=== PATIENT | female | born 1980 | race Caucasian/White ===

== ENCOUNTER 2016-10-21 03:54 | Observation (INO) | payer OTHER ==
[2016-10-21] MEDS ORDERED: Metoclopramide 10 MG/2 ML SDV IVPUSH ONE (04:56)
[2016-10-21] MEDS ORDERED: HYDROmorphone 1 MG/ML Syringe IVPUSH ONE ×2 (04:56→07:26)
[2016-10-21] MEDS ORDERED: Dextrose 5%-0.9% NaCl 1,000 ML IV SCH (05:00)
--- NOTE | 2016-10-21 05:06 | EDM.PDOC ---
ED HPI GENERAL MEDICAL PROBLEM - General Chief Complaint: Abdominal Pain Stated Complaint: abdominal right side pain Time Seen by Provider: 10/21/16 04:55 Source of Information: Reports: Patient, Family (spouse) History Limitations: Reports: No Limitations - History of Present Illness INITIAL COMMENTS - FREE TEXT/NARRATIVE: 36-year-old female presents to the ED for evaluation of severe right lower quadrant abdominal pain. Patient states pain came on evening October 19. Initially it seemed to have a colicky component but over the last 24 hours is been much more constant with intermittent colicky component. Associated nausea and vomiting due to the intensity of the pain. Complete loss of appetite and inability to eat for over 24 hours. Aware of some chills but no defined fever. Painful to walk cough or get in and out of a vehicle etc. Previous abdominal surgery is that of a total abdominal hysterectomy with retained ovaries. Previous cholecystectomy. Patient reports she was seen at [facility] yesterday and did have CT of the abdomen without any contrast and no signs of appendicitis were confirmed. They suggested that she had some inflammation of her bowel in this area and she was started on metronidazole and Cipro. She's not been able to keep down either of these medications. Onset: Gradual Onset Date: 10/19/16 Onset Time: 18:00 Duration: Hour(s):, Getting Worse Location: Reports: Abdomen (Right lower quadrant of the abdomen.) Quality: Reports: Ache, Stabbing (Intermittent stabbing sharp pain but otherwise deep aching pain.) Severity: Severe (Current pain is 9 on a 10) Improves with: Reports: None Worsens with: Reports: Movement Context: Denies: Activity, Exercise, Lifting, Sick Contact, Trauma, Other Associated Symptoms: Reports: Fever/Chills, Loss of Appetite, Malaise, Nausea/ Vomiting (Nausea and vomiting). 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 (see below) (Tried to take prescribed medications but was unable to keep them down.) Right Abdominal Pain Score (Numeric/FACES): 9 - Related Data Allergies Allergy/AdvReac Type Severity Reaction Status Date / Time amoxicillin [Amoxicillin] Allergy Hives Verified 10/21/16 10:11 hydrocodone Allergy Shortness Verified 10/21/16 10:11 of Breath shellfish derived Allergy Hives Verified 10/21/16 10:11 Home Meds: Home Meds Albuterol [IJD: Albuterol HFA] 1 - 2 puff INH Q4H PRN 10/21/16 [History] Albuterol [Proventil Neb Soln] 1 puff INH QID PRN 10/21/16 [History] Ciprofloxacin [IJP: Ciprofloxacin HCl] 500 mg PO BID 10/21/16 [History] Metronidazole [IJD: metroNIDAZOLE] 500 mg PO TID 10/21/16 [History] Mometasone/Formoterol [Dulera 200-5 MCG] 2 puff INH BID 10/21/16 [History] Multivitamin [Multivitamins] 1 tab PO DAILY 10/21/16 [History] Past Medical History Respiratory History: Reports: Asthma Gastrointestinal History: Reports: Inflammatory Bowel Disease - Past Surgical History GI Surgical History: Reports: Cholecystectomy Female Surgical History: Reports: Hysterectomy Social & Family History - Family History Family Medical History: Noncontributory - Tobacco Use Smoking Status *Q: Current Every Day Smoker Years of Tobacco use: 15 Packs/Tins Daily: 0.5 Used Tobacco, but Quit: No Month Tobacco Last Used: December 2013 Second Hand Smoke Exposure: No - Caffeine Use Caffeine Use: Reports: Coffee - Alcohol Use Days Per Week of Alcohol Use: 0 Number of Drinks Per Day: 0 Total Drinks Per Week: 0 - Recreational Drug Use Recreational Drug Use: No Drug Use in Last 12 Months: No - Living Situation & Occupation Living situation: Reports: Single Occupation: Employed [employer] - Review of Systems Review Of Systems: See Below Constitutional: Reports: Chills, Malaise, Weakness, Fatigue, Decreased Appetite. Denies: Fever, Weight Loss HEENT: Reports: No Symptoms Respiratory: Reports: Wheezing (Occasional brown sputum), Cough (Cigarette smoker.), Sputum Cardiovascular: Reports: Dyspnea on Exertion ( occasional wheezing sometimes ). Denies: Chest Pain, Blood Pressure Problem, Claudication, Edema, Lightheadedness, Orthopnea Endocrine: Reports: Fatigue GI/Abdominal: Reports: Abdominal Pain, Anorexia (See history of present illness) , Nausea, Vomiting. Denies: Diarrhea : Reports: No Symptoms Musculoskeletal: Reports: No Symptoms Skin: Reports: No Symptoms Neurological: Reports: No Symptoms Psychiatric: Reports: No Symptoms ED EXAM, GI/ABD - Physical Exam Exam: See Below Exam Limited By: No Limitations General Appearance: Alert, WD/WN, Moderate Distress (Patient does appear to be in significant amount of discomfort. She is afebrile on exam.) Eyes: Bilateral: Normal Appearance (No jaundice) Throat/Mouth: Normal Inspection, Normal Lips, Normal Oropharynx, Other Head: Atraumatic (Tongue is moist), Normocephalic Neck: Normal Inspection, Supple, Non-Tender, Full Range of Motion. No: Lymphadenopathy (L), Lymphadenopathy (R), Thyromegaly Respiratory/Chest: No Respiratory Distress, Lungs Clear, Normal Breath Sounds, No Accessory Muscle Use, Other (Initial O2 sats reported at 93%. They're currently 97% on room air.). No: Respiratory Distress Cardiovascular: Normal Peripheral Pulses, Regular Rate, Rhythm, No Edema, No Gallop, No Murmur, No Rub GI/Abdominal Exam: Guarding (Right lower quadrant of the abdomen), Rebound ( guarding right lower quadrant in the abdomenrebound tenderness over McBurney's point. ), Tender, Abnormal Bowel Sounds (Hypoactive bowel sounds are few and far between.) Back Exam: Normal Inspection, Full Range of Motion. No: CVA Tenderness (L), CVA Tenderness (R) Extremities: Normal Inspection, Normal Range of Motion, Non-Tender, No Pedal Edema, Normal Capillary Refill Neurological: Alert, Oriented, CN II-XII Intact, Normal Cognition, Normal Gait, Normal Reflexes, No Motor/Sensory Deficits Psychiatric: Normal Mood Skin Exam: Warm, Dry, Intact, Normal Color, No Rash Course - Vital Signs Last Recorded V/S: Last Vital Signs Temp 36.8 C 10/21/16 16:00 Pulse 98 10/21/16 15:01 Resp 16 10/21/16 11:35 BP 116/63 10/21/16 15:01 Pulse Ox 95 10/21/16 15:01 - Orders/Labs/Meds Orders: Active Orders 24 hr Category Date Time Status Patient Status [ADT] Stat ADT 10/21/16 10:26 Active Ambulate [RC] ASDIRECTED Care 10/21/16 10:28 Active Incentive Breathing [RT Incentive Spirometry] [RC] Care 10/21/16 10:33 Active ASDIRECTED Notify Provider [RC] ASDIRECTED Care 10/21/16 10:05 Active Oxygen Therapy [RC] .PRN Care 10/21/16 10:05 Active Pulse Oximetry [RC] ASDIRECTED Care 10/21/16 10:05 Active Turn, Cough, Deep Breathe [RC] .PRN Care 10/21/16 10:29 Active Verify Patient Consent Obtain [RC] ASDIRECTED Care 10/21/16 08:28 Active Vital Signs [RC] Q15M Care 10/21/16 10:05 Inactive Clear Liquid Diet [DIET] Diet 10/21/16 Dinner Active Abdomen 1V Flat [CR] Stat Exams 10/21/16 04:57 Taken Abdomen Pelvis wo Cont [CT] Stat Exams 10/21/16 06:14 Taken Albuterol [Proventil Neb Soln] Med 10/21/16 10:05 Active 2.5 mg NEB ONETIME PRN HYDROmorphone [Dilaudid] Med 10/21/16 10:31 Active 0.5 mg IVPUSH Q1H PRN Mometasone/Formoterol [Dulera 200-5 MCG] Med 10/21/16 21:00 Active 2 puff IH BID cefOXitin [Mefoxin in Dextrose,Iso-Osm 1 GM/50 ML] 1 gm Med 10/21/16 15:00 Active Premix Bag 1 bag IV Q6H diphenhydrAMINE [Benadryl] Med 10/21/16 10:05 Active 25 mg IVPUSH Q6H PRN metroNIDAZOLE/Normal Saline [Flagyl 500 MG in NS 100 ML Med 10/21/16 11:00 Active ] 500 mg Premix Bag 1 bag IV Q8H Schedule Procedure [COMM] Urgent Oth 10/21/16 08:29 Ordered Medication Orders Al Hydroxide/Mg Hydroxide (Mag-Al Plus) 30 ml PO Q4H PRN PRN Reason: Heartburn Last Admin: 10/21/16 18:48 Dose: 30 ml Albuterol (Proventil Neb Soln) 2.5 mg NEB ONETIME PRN PRN Reason: asthma Diphenhydramine HCl (Benadryl) 25 mg IVPUSH Q6H PRN PRN Reason: pruritis Hydromorphone HCl (Dilaudid) 0.5 mg IVPUSH Q1H PRN PRN Reason: Pain Last Admin: 10/21/16 16:19 Dose: 0.5 mg Admin: 10/21/16 12:07 Dose: 0.5 mg Cefoxitin Sodium 1 gm/ Premix 50 mls @ 100 mls/hr IV Q6H [facility] Last Admin: 10/21/16 15:13 Dose: 100 mls/hr Metronidazole 500 mg/ Premix 100 mls @ 100 mls/hr IV Q8H LARA Last Admin: 10/21/16 18:24 Dose: 100 mls/hr Infusion: 10/21/16 13:07 Dose: 100 mls/hr Admin: 10/21/16 12:07 Dose: 100 mls/hr Metoclopramide HCl (Reglan) 10 mg IVPUSH Q6H PRN PRN Reason: Nausea Mometasone Furoate/Formoterol Fumar (Dulera 200-5 Mcg) 2 puff IH BID LARA Tramadol HCl (Ultram) 50 mg PO Q6H PRN PRN Reason: Pain Last Admin: 10/21/16 18:24 Dose: 50 mg Labs: Laboratory Tests 10/21/16 10/21/16 10/21/16 Range/Units 04:50 04:50 06:50 WBC 20.84 H (3.98-10.04) K/mm3 RBC 5.18 (3.98-5.22) M/mm3 Hgb 15.7 (11.2-15.7) gm/L Hct 44.4 (34.1-44.9) % MCV 85.7 (79.4-94.8) fl MCH 30.3 (25.6-32.2) pg MCHC 35.4 (32.2-35.5) g/dl RDW Std Deviation 41.2 (36.4-46.3) fL Plt Count 230 (182-369) K/mm3 MPV 11.0 (9.4-12.3) fl Neutrophils % (Manual) 88 H (40-60) % Band Neutrophils % 0 (0-10) % Lymphocytes % (Manual) 6 L (20-40) % Atypical Lymphs % 1 % Monocytes % (Manual) 5 (2-10) % Eosinophils % (Manual) 0 L (0.7-5.8) % Basophils % (Manual) 0 L (0.1-1.2) Platelet Estimate Adequate Plt Morphology Comment Normal RBC Morph Comment Normal Sodium 138 (136-145) mEq/L Potassium 3.5 (3.5-5.1) mEq/L Chloride 103 (98-107) mEq/L Carbon Dioxide 24 (21-32) mEq/L Anion Gap 14.5 (5-15) BUN 9 (7-18) mg/dL Creatinine 0.9 (0.55-1.02) mg/dL Est Cr Clr Drug Dosing 72.17 mL/min Estimated GFR (MDRD) > 60 (>60) mL/min BUN/Creatinine Ratio 10.0 L (14-18) Glucose 125 H (74-106) mg/dL Calcium 9.0 (8.5-10.1) mg/dL Total Bilirubin 0.4 (0.2-1.0) mg/dL AST 16 (15-37) U/L ALT 29 (14-59) U/L Alkaline Phosphatase 58 (46-116) U/L C-Reactive Protein 1.2 H* (<1.0) mg/dL Total Protein 7.3 (6.4-8.2) g/dl Albumin 4.1 (3.4-5.0) g/dl Globulin 3.2 gm/dL Albumin/Globulin Ratio 1.3 (1-2) Urine Color Yellow (Yellow) Urine Appearance Slt cloudy H (Clear) Urine pH 6.0 (5.0-8.0) Ur Specific [place] 1.015 (1.005-1.030) Urine Protein Negative (Negative) Urine Glucose (UA) 2+ H (Negative) Urine Ketones 1+ H (Negative) Urine Occult Blood 2+ H (Negative) Urine Nitrite Negative (Negative) Urine Bilirubin Negative (Negative) Urine Urobilinogen 0.2 (0.2-1.0) Ur Leukocyte Esterase Negative (Negative) Urine RBC 0-5 (0-5) /hpf Urine WBC 0-5 (0-5) /hpf Ur Epithelial Cells 5-10 H (0-5) /hpf Urine Bacteria Few (FEW) /hpf Urine Mucus Few (FEW) /hpf Meds: Medications Generic Name Dose Route Start Last Admin Trade Name Freq PRN Reason Stop Dose Admin Al Hydroxide/Mg Hydroxide 30 ml 10/21/16 18:32 10/21/16 18:48 Mag-Al Plus PO 30 ml Q4H PRN Administration Heartburn Albuterol 2.5 mg 10/21/16 10:05 Proventil Neb Soln NEB ONETIME PRN asthma Diphenhydramine HCl 25 mg 10/21/16 10:05 Benadryl IVPUSH Q6H PRN pruritis Hydromorphone HCl 0.5 mg 10/21/16 10:31 10/21/16 16:19 Dilaudid IVPUSH 0.5 mg Q1H PRN Administration Pain Cefoxitin Sodium 1 gm/ Premix 50 mls @ 100 mls/hr 10/21/16 15:00 10/21/16 15: 13 IV 100 mls/hr Q6H LARA Administration Metronidazole 500 mg/ Premix 100 mls @ 100 mls/hr 10/21/16 11:00 10/21/16 18: 24 IV 100 mls/hr Q8H LARA Administration Metoclopramide HCl 10 mg 10/21/16 10:40 Reglan IVPUSH Q6H PRN Nausea Mometasone Furoate/Formoterol Fumar 2 puff 10/21/16 21:00 Dulera 200-5 Mcg IH BID LARA Tramadol HCl 50 mg 10/21/16 17:41 10/21/16 18:24 Ultram PO 50 mg Q6H PRN Administration Pain Discontinued Medications Generic Name Dose Route Start Last Admin Trade Name Freq PRN Reason Stop Dose Admin Albuterol Confirm 10/21/16 09:58 Proventil Hfa Administered 10/21/16 09:59 Dose 6.7 gm INH .STK-MED ONE Bupivacaine HCl Confirm 10/21/16 08:47 10/21/16 09:47 Marcaine 0.5% Administered 10/21/16 08:48 15 ml Dose Administration 30 ml .ROUTE .STK-MED ONE Dexamethasone Confirm 10/21/16 09:14 Dexamethasone Administered 10/21/16 09:15 Dose 20 mg .ROUTE .STK-MED ONE Diatrizoate Meglum/Diatrizoate Sod 90 ml 10/21/16 07:09 10/21/16 07:18 Gastrografin 37% PO 10/21/16 07:10 90 ml ONETIME ONE Administration Fentanyl Confirm 10/21/16 09:15 Sublimaze Administered 10/21/16 09:16 Dose 250 mcg .ROUTE .STK-MED ONE Fentanyl 50 mcg 10/21/16 10:05 Sublimaze IVPUSH 10/21/16 10:21 Q5M PRN Pain Glycopyrrolate Confirm 10/21/16 10:15 Robinul Administered 10/21/16 10:16 Dose 0.2 mg .ROUTE .STK-MED ONE Glycopyrrolate Confirm 10/21/16 10:15 Robinul Administered 10/21/16 10:16 Dose 0.2 mg .ROUTE .STK-MED ONE Glycopyrrolate Confirm 10/21/16 10:15 Robinul Administered 10/21/16 10:16 Dose 0.2 mg .ROUTE .STK-MED ONE Hydromorphone HCl 1 mg 10/21/16 04:56 10/21/16 05:22 Dilaudid IVPUSH 10/21/16 04:57 1 mg ONETIME ONE Administration Hydromorphone HCl 1 mg 10/21/16 07:26 10/21/16 07:32 Dilaudid IVPUSH 10/21/16 07:27 1 mg ONETIME ONE Administration Hydromorphone HCl 0.5 mg 10/21/16 10:05 Dilaudid IVPUSH 10/21/16 10:21 Q15M PRN severe pain Hydromorphone HCl Confirm 10/21/16 10:35 Dilaudid Administered 10/21/16 10:36 Dose 1 mg .ROUTE .STK-MED ONE Dextrose/Sodium Chloride 1,000 mls @ 999 mls/hr 10/21/16 05:00 10/21/16 05:31 Dextrose 5%-Normal Saline IV 999 mls/hr ASDIRECTED LARA Administration Potassium Chloride/Dextrose/Sod Cl Confirm 10/21/16 06:38 10/21/16 06:39 D5 Ns With 20 Meq Kcl Administered 10/21/16 06:39 1,000 ml Dose Administration 1,000 mls @ as directed .ROUTE .STK-MED ONE Potassium Chloride/Dextrose/Sod Cl 1,000 mls @ 150 mls/hr 10/21/16 06:45 06:45 D5 Ns With 20 Meq Kcl IV 150 mls/hr ASDIRECTED LARA Administration Cefoxitin Sodium 2 gm/ Premix 50 mls @ 100 mls/hr 10/21/16 07:34 10/21/16 08: 53 IV 10/21/16 08:03 100 mls/hr ONETIME ONE Administration Lidocaine HCl Confirm 10/21/16 09:14 Xylocaine-Mpf 1% Administered 10/21/16 09:15 Dose 4 mls @ as directed .ROUTE .STK-MED ONE Lactated Ringer's Confirm 10/21/16 09:14 Ringers, Lactated Administered 10/21/16 09:15 Dose 1,000 mls @ as directed .ROUTE .STK-MED ONE Phenylephrine HCl 1 mg/ Sodium 10.1 mls @ 1 mls/sec 10/21/16 10:15 Chloride IV TITRATE LARA Protocol Lactated Ringer's 1,000 mls @ 75 mls/hr 10/21/16 10:30 Ringers, Lactated IV ASDIRECTED LARA Metoclopramide HCl 7.5 mg 10/21/16 04:56 10/21/16 05:22 Reglan IVPUSH 10/21/16 04:57 7.5 mg ONETIME ONE Administration Midazolam HCl Confirm 10/21/16 09:15 Versed 1 Mg/Ml Administered 10/21/16 09:16 Dose 2 mg .ROUTE .STK-MED ONE Neostigmine Methylsulfate Confirm 10/21/16 10:15 Neostigmine Methylsulfate Administered 10/21/16 10:16 Dose 10 mg .ROUTE .STK-MED ONE Ondansetron HCl 4 mg 10/21/16 07:26 10/21/16 07:35 Zofran IVPUSH 10/21/16 07:27 4 mg ONETIME ONE Administration Ondansetron HCl Confirm 10/21/16 09:14 Zofran Administered 10/21/16 09:15 Dose 4 mg .ROUTE .STK-MED ONE Ondansetron HCl 4 mg 10/21/16 10:05 Zofran IVPUSH ONETIME PRN Nausea/Vomiting Ondansetron HCl 4 mg 10/21/16 10:31 Zofran IVPUSH Q8H PRN Nausea Phenylephrine HCl Confirm 10/21/16 10:06 Scot-Synephrine Administered 10/21/16 10:07 Dose 10 mg .ROUTE .STK-MED ONE Propofol Confirm 10/21/16 09:14 Diprivan 20 Ml Administered 10/21/16 09:15 Dose 200 mg .ROUTE .STK-MED ONE Rocuronium Sayner Confirm 10/21/16 09:14 Zemuron Administered 10/21/16 09:15 Dose 50 mg .ROUTE .STK-MED ONE Succinylcholine Chloride Confirm 10/21/16 09:14 Quelicin Administered 10/21/16 09:15 Dose 200 mg .ROUTE .STK-MED ONE - Radiology Interpretation Free Text/Narrative:: 36-year-old female presents to the ED with gradually increasing right lower quadrant abdominal pain over the last 36 hours. She did chills but no defined fever. Complete loss of appetite with intermittent nausea and vomiting due to the intensity of the pain. Pain initially seemed to be quite colicky but is now much more constant and well localized to the right lower quadrant of the abdomen. She's had previous total bowel hysterectomy with retention of her ovaries. Appendix is present. On examination she is definitely exhibiting peritoneal signs in the right lower quadrant with guarding and rebound tenderness at McBurney's point. Plan IV D5 normal saline at open. Given Dilaudid 1 mg IV and Reglan 10 mg IV for pain/nausea relief. She will have initial KUB done. Urinalysis is routine labs will be obtained. - Re-Assessments/Exams Free Text/Narrative Re-Assessment/Exam: 10/21/16 05:26: KUB shows some increased stool in the right lower quadrant in the cecum distribution. No signs of bowel obstruction or significant constipation are evident. 10/21/16 06:26 labs reveal an elevated white blood cell count at 20,000.84 with 88% neutrophils and no bands reported. Hemoglobin is 15.7 hematocrit is 44.4. Platelets are 230,000. Chemistry shows a sodium of 138 potassium was low-normal at 3.5 chloride 103 bicarbonate 24 anion gap is 14.5 glucose 125 CRP is 1.2. Renal function and liver function appear to be normal. Patient is currently drinking oral contrast in preparation for CT of the abdomen and pelvis. She will not receive intravenous contrast as she has a well-defined shellfish allergy. 10/21/16 07:26 Patient is complaining of increased lower abdominal pain once again and associated nausea. Repeated Dilaudid 1 mg IV with Zofran 4 mg IV. is just to treat return from the CT suite. On my assessment she has evidence of acute appendicitis with a phlebolith present. I will therefore contact Dr. Pérez production superintendent hydro surgeon to see her in consultation. We'll go ahead and give her cefoxitin 1 g intravenously at this time. She reports a remote allergy to amoxicillin which was a rash. Departure - Departure Time of Disposition: 09:00 Disposition: Admitted As Inpatient 67 Condition: Fair Clinical Impression: Appendicitis Qualifiers: Appendicitis type: acute appendicitis Acute appendicitis type: with localized peritonitis Qualified Code(s): K35.3 - Acute appendicitis with localized peritonitis - Discharge Information - My Orders Last 24 Hours: My Active Orders 10/21/16 04:57 Abdomen 1V Flat [CR] Stat 10/21/16 06:14 Abdomen Pelvis wo Cont [CT] Stat - Assessment/Plan Last 24 Hours: My Active Orders 10/21/16 04:57 Abdomen 1V Flat [CR] Stat 10/21/16 06:14 Abdomen Pelvis wo Cont [CT] Stat
[2016-10-21] MEDS ORDERED: Dextrose 5%-0.9% NaCl with KCl 1,000 ML ONE (06:38)
[2016-10-21] MEDS ORDERED: Dextrose 5%-0.9% NaCl with KCl 1,000 ML IV SCH (06:45)
[2016-10-21] MEDS ORDERED: Diatrizoate Meglumine/Diatrizoate Sodium 37% 120 ML Bottle PO ONE (07:09)
[2016-10-21] MEDS ORDERED: Ondansetron 4 MG/2 ML SDV IVPUSH ONE (07:26)
[2016-10-21] MEDS ORDERED: cefOXitin 2 GM in Premix Bag 1 BAG IV ONE (07:34)
[2016-10-21] MEDS ORDERED: Bupivacaine 0.5% 30 ML SDV ONE (08:47)
--- NOTE | 2016-10-21 08:47 | PCM.PREANE ---
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.), Dyspnea on Exertion Gastrointestinal: No Symptoms (GERD), Abdominal Pain, Constipation, Decreased Appetite, Nausea, Vomiting Neurological: No Symptoms (History of vertigo.), Tingling (Both legs when sitting for a long time.) Other: Reports: None, Sinus Problem (seasonal allergies.), Anxiety - Physical Assessment NPO Status Date: 10/21/16 NPO Status Time: 07:18 Pulse: 68 O2 Sat by Pulse Oximetry: 97 Respiratory Rate: 16 Blood Pressure: 126/77 Temperature: 36 C Vital Signs: Last Vital Signs Temp 36.0 C 10/21/16 04:25 Pulse 68 10/21/16 04:25 Resp 16 10/21/16 04:25 BP Pulse Ox 93 L 10/21/16 04:25 Height: 1.6 m Weight: 73.936 kg ASA Class: 2E Mental Status: Alert & Oriented x3 Airway Class: Mallampati = 2 Dentition: Reports: Normal Dentition, Braxton(s), Caries Thyro-Mental Finger Breadths: 3 Mouth Opening Finger Breadths: 3 Lungs: Clear to Auscultation, Normal Respiratory Effort Cardiovascular: Regular Rate, Regular Rhythm, No Murmurs - Lab Values: Laboratory Last Values WBC 20.84 K/mm3 (3.98-10.04) H 10/21/16 04:50 RBC 5.18 M/mm3 (3.98-5.22) 10/21/16 04:50 Hgb 15.7 gm/L (11.2-15.7) 10/21/16 04:50 Hct 44.4 % (34.1-44.9) 10/21/16 04:50 MCV 85.7 fl (79.4-94.8) 10/21/16 04:50 MCH 30.3 pg (25.6-32.2) 10/21/16 04:50 MCHC 35.4 g/dl (32.2-35.5) 10/21/16 04:50 RDW Std Deviation 41.2 fL (36.4-46.3) 10/21/16 04:50 Plt Count 230 K/mm3 (182-369) 10/21/16 04:50 MPV 11.0 fl (9.4-12.3) 10/21/16 04:50 Neutrophils % (Manual) 88 % (40-60) H 10/21/16 04:50 Band Neutrophils % 0 % (0-10) 10/21/16 04:50 Lymphocytes % (Manual) 6 % (20-40) L 10/21/16 04:50 Atypical Lymphs % 1 % 10/21/16 04:50 Monocytes % (Manual) 5 % (2-10) 10/21/16 04:50 Eosinophils % (Manual) 0 % (0.7-5.8) L 10/21/16 04:50 Basophils % (Manual) 0 (0.1-1.2) L 10/21/16 04:50 Platelet Estimate Adequate 10/21/16 04:50 Plt Morphology Comment Normal 10/21/16 04:50 RBC Morph Comment Normal 10/21/16 04:50 Sodium 138 mEq/L (136-145) 10/21/16 04:50 Potassium 3.5 mEq/L (3.5-5.1) 10/21/16 04:50 Chloride 103 mEq/L (98-107) 10/21/16 04:50 Carbon Dioxide 24 mEq/L (21-32) 10/21/16 04:50 Anion Gap 14.5 (5-15) 10/21/16 04:50 BUN 9 mg/dL (7-18) 10/21/16 04:50 Creatinine 0.9 mg/dL (0.55-1.02) 10/21/16 04:50 Est Cr Clr Drug Dosing 72.17 mL/min 10/21/16 04:50 Estimated GFR (MDRD) > 60 mL/min (>60) 10/21/16 04:50 BUN/Creatinine Ratio 10.0 (14-18) L 10/21/16 04:50 Glucose 125 mg/dL (74-106) H 10/21/16 04:50 Calcium 9.0 mg/dL (8.5-10.1) 10/21/16 04:50 Total Bilirubin 0.4 mg/dL (0.2-1.0) 10/21/16 04:50 AST 16 U/L (15-37) 10/21/16 04:50 ALT 29 U/L (14-59) 10/21/16 04:50 Alkaline Phosphatase 58 U/L (46-116) 10/21/16 04:50 C-Reactive Protein 1.2 mg/dL (<1.0) H* 10/21/16 04:50 Total Protein 7.3 g/dl (6.4-8.2) 10/21/16 04:50 Albumin 4.1 g/dl (3.4-5.0) 10/21/16 04:50 Globulin 3.2 gm/dL 10/21/16 04:50 Albumin/Globulin Ratio 1.3 (1-2) 10/21/16 04:50 Urine Color Yellow (Yellow) 10/21/16 06:50 Urine Appearance Slt cloudy (Clear) H 10/21/16 06:50 Urine pH 6.0 (5.0-8.0) 10/21/16 06:50 Ur Specific [place] 1.015 (1.005-1.030) 10/21/16 06:50 Urine Protein Negative (Negative) 10/21/16 06:50 Urine Glucose (UA) 2+ (Negative) H 10/21/16 06:50 Urine Ketones 1+ (Negative) H 10/21/16 06:50 Urine Occult Blood 2+ (Negative) H 10/21/16 06:50 Urine Nitrite Negative (Negative) 10/21/16 06:50 Urine Bilirubin Negative (Negative) 10/21/16 06:50 Urine Urobilinogen 0.2 (0.2-1.0) 10/21/16 06:50 Ur Leukocyte Esterase Negative (Negative) 10/21/16 06:50 Urine RBC 0-5 /hpf (0-5) 10/21/16 06:50 Urine WBC 0-5 /hpf (0-5) 10/21/16 06:50 Ur Epithelial Cells 5-10 /hpf (0-5) H 10/21/16 06:50 Urine Bacteria Few /hpf (FEW) 10/21/16 06:50 Urine Mucus Few /hpf (FEW) 10/21/16 06:50 Above labs reviewed and noted. - Allergies Allergies/Adverse Reactions: Allergies Allergy/AdvReac Type Severity Reaction Status Date / Time amoxicillin [Amoxicillin] Allergy Hives Verified 12/19/13 18:53 hydrocodone Allergy Shortness Verified 12/19/13 18:53 of Breath shellfish derived Allergy Hives Verified 10/21/16 04:20 - Anesthesia Plan Pre-Op Medication Ordered: None - Acknowledgements Anesthesia Type Planned: General Anesthesia Pt an Appropriate Candidate for the Planned Anesthesia: Yes Alternatives and Risks of Anesthesia Discussed w Pt/Guardian: Yes Pt/Guardian Understands and Agrees with Anesthesia Plan: Yes PreAnesthesia Questionnaire Respiratory History: Reports: Asthma Gastrointestinal History: Reports: Inflammatory Bowel Disease - Past Surgical History GI Surgical History: Reports: Cholecystectomy Female Surgical History: Reports: Hysterectomy - SUBSTANCE USE Smoking Status *Q: Current Every Day Smoker Tobacco Use Within Last Twelve Months: Cigarettes Second Hand Smoke Exposure: No Days Per Week of Alcohol Use: 0 Number of Drinks Per Day: 0 Total Drinks Per Week: 0 Recreational Drug Use History: No - HOME MEDS Home Medications: Home Meds Albuterol [IJD: Albuterol HFA] 1 - 2 puff INH Q4H PRN 10/21/16 [History] Albuterol [Proventil Neb Soln] 1 puff INH QID PRN 10/21/16 [History] Ciprofloxacin [IJP: Ciprofloxacin HCl] 500 mg PO BID 10/21/16 [History] Metronidazole [IJD: metroNIDAZOLE] 500 mg PO TID 10/21/16 [History] Mometasone/Formoterol [Dulera 200-5 MCG] 2 puff INH BID 10/21/16 [History] Multivitamin [Multivitamins] 1 tab PO DAILY 10/21/16 [History] - CURRENT (IN HOUSE) MEDS Current Meds: Current Medications Dextrose/Sodium Chloride (Dextrose 5%-Normal Saline) 1,000 mls @ 999 mls/hr IV ASDIRECTED [facility] Last Admin: 10/21/16 05:31 Dose: 999 mls/hr Potassium Chloride/Dextrose/Sod Cl (D5 Ns With 20 Meq Kcl) 1,000 mls @ 150 mls/ hr IV ASDIRECTED [facility] Last Admin: 10/21/16 06:45 Dose: 150 mls/hr Discontinued Medications Diatrizoate Meglum/Diatrizoate Sod (Gastrografin 37%) 90 ml PO ONETIME ONE Stop: 10/21/16 07:10 Last Admin: 10/21/16 07:18 Dose: 90 ml Hydromorphone HCl (Dilaudid) 1 mg IVPUSH ONETIME ONE Stop: 10/21/16 04:57 Last Admin: 10/21/16 05:22 Dose: 1 mg Hydromorphone HCl (Dilaudid) 1 mg IVPUSH ONETIME ONE Stop: 10/21/16 07:27 Last Admin: 10/21/16 07:32 Dose: 1 mg Potassium Chloride/Dextrose/Sod Cl (D5 Ns With 20 Meq Kcl) Confirm Administered Dose 1,000 mls @ as directed .ROUTE .STK-MED ONE Stop: 10/21/16 06:39 Last Admin: 10/21/16 06:39 Dose: 1,000 ml Cefoxitin Sodium 2 gm/ Premix 50 mls @ 100 mls/hr IV ONETIME ONE Stop: 10/21/16 08:03 Metoclopramide HCl (Reglan) 7.5 mg IVPUSH ONETIME ONE Stop: 10/21/16 04:57 Last Admin: 10/21/16 05:22 Dose: 7.5 mg Ondansetron HCl (Zofran) 4 mg IVPUSH ONETIME ONE Stop: 10/21/16 07:27 Last Admin: 10/21/16 07:35 Dose: 4 mg
[2016-10-21] MEDS ORDERED: Rocuronium 50 MG/5 ML Vial ONE (09:14)
[2016-10-21] MEDS ORDERED: Dexamethasone 4 MG/ML 5 ML MDV ONE (09:14)
[2016-10-21] MEDS ORDERED: Lidocaine 1% 4 ML ONE (09:14)
[2016-10-21] MEDS ORDERED: Propofol 200 MG/20 ML SDV ONE (09:14)
[2016-10-21] MEDS ORDERED: Succinylcholine 200 MG/10 ML MDV ONE (09:14)
[2016-10-21] MEDS ORDERED: Ondansetron 4 MG/2 ML SDV ONE (09:14)
[2016-10-21] MEDS ORDERED: Lactated Ringers 1,000 ML ONE (09:14)
[2016-10-21] MEDS ORDERED: fentaNYL 250 MCG/5 ML SDV ONE (09:15)
[2016-10-21] MEDS ORDERED: Midazolam 1 MG/ML 2 ML SDV ONE (09:15)
[2016-10-21] MEDS ORDERED: Albuterol 6.7 GM Inhaler INH ONE (09:58)
[2016-10-21] MEDS ORDERED: HYDROmorphone 0.5 MG/0.5 ML Syringe IVPUSH PRN (10:05)
[2016-10-21] MEDS ORDERED: Ondansetron 4 MG/2 ML SDV IVPUSH PRN ×2 (10:05→10:31)
[2016-10-21] MEDS ORDERED: Albuterol 0.083% 2.5 MG/3 ML Neb Soln NEB PRN (10:05)
[2016-10-21] MEDS ORDERED: fentaNYL 100 MCG/2 ML SDV IVPUSH PRN (10:05)
[2016-10-21] MEDS ORDERED: diphenhydrAMINE 50 MG/ML SDV IVPUSH PRN (10:05)
[2016-10-21] MEDS ORDERED: Phenylephrine 1% 10 MG/ML SDV ONE (10:06)
--- NOTE | 2016-10-21 10:08 | HP ---
DATE OF ADMISSION: 10/21/2016 HISTORY OF PRESENT ILLNESS: The patient is a 36-year-old, who developed pain in the right lower quadrant. This occurred on , came into the walk-in clinic and a CT scan was done, which showed some bowel thickening. The patient was discharged, but the pain persisted and about 11 o'clock she began to vomit and came in about 3 o'clock in the morning today where CT scan was repeated showing acute appendicitis, 2 fecaliths. I was asked to see the patient. PAST MEDICAL HISTORY: Good health. ALLERGIES: Amoxicillin. SOCIAL HISTORY: She does smoke. No alcohol. REVIEW OF SYSTEMS: No chest pain, shortness of breath, cough, hoarseness, wheezing, fainting, weakness, numbness, or convulsions. FAMILY HISTORY: Negative. CURRENT MEDICATIONS: None. PHYSICAL EXAMINATION: GENERAL: Alert, cooperative female. VITAL SIGNS: Stable. EYES: Sclerae white. Extraocular muscle motion normal. ORAL CAVITY: Healthy mucous membrane with mouth and tongue. NECK: Supple. No nodes. No thyromegaly. Trachea midline. LUNGS: Clear. No rales, rhonchi, fremitus, or dullness. CARDIAC: Heart tones are regular rate. No S3, S4, jugular venous distention or murmurs. ABDOMEN: Positive Rovsing sign and tenderness and guarding in the right lower quadrant. MUSCULOSKELETAL: Moves all 4. SKIN: Warm and dry. PSYCHIATRIC: Alert and cooperative. NEUROLOGIC: 3 through 12 intact. No sensorineural deficit. ASSESSMENT: Acute appendicitis. PLAN: For laparoscopic appendectomy. Discussed the procedure, risks, complications. She understands and consents. MMODAL /[id number]
[2016-10-21] MEDS ORDERED: Glycopyrrolate 0.2 MG/ML SDV ONE ×3 (10:15)
[2016-10-21] MEDS ORDERED: Neostigmine Methylsulfate 10 MG/10 ML MDV ONE (10:15)
[2016-10-21] MEDS ORDERED: Phenylephrine 1 MG in Sodium Chloride 0.9% 10 ML IV SCH (10:15)
--- NOTE | 2016-10-21 10:26 | PCM.OPNOTE ---
- General Post-Op/Procedure Note Date of Surgery/Procedure: 10/21/16 Operative Procedure(s): lap appy Findings: necrotic appendix Pre Op Diagnosis: acute appendicitis Post-Op Diagnosis: necrotic appendix Anesthesia Technique: General ET Tube Primary Surgeon: Manoj Pérez EBL in mLs: 10 Complications: None Condition: Good
[2016-10-21] MEDS ORDERED: Lactated Ringers 1,000 ML IV SCH (10:30)
[2016-10-21] MEDS ORDERED: HYDROmorphone 1 MG/ML Syringe ONE (10:35)
[2016-10-21] MEDS ORDERED: Metoclopramide 10 MG/2 ML SDV IVPUSH PRN (10:40)
--- NOTE | 2016-10-21 10:47 | PCM.POSTAN ---
POST ANESTHESIA ASSESSMENT - MENTAL STATUS Mental Status: Alert - VITAL SIGNS Pulse Rate: 117 SaO2: 95 Resp Rate: 22 Blood Pressure: 127/75 Temperature: 37.0 C - RESPIRATORY Respiratory Status: Respiratory Rate WNL, Airway Patent, O2 Saturation Stable, Supplemental Oxygen - CARDIOVASCULAR CV Status: Pulse Rate WNL, Blood Pressure Stable - GASTROINTESTINAL GI Status: No Symptoms - POST OP HYDRATION Hydration Status: Adequate & Stable
--- NOTE | 2016-10-21 11:09 | PCM48HPAN ---
Post Anesthesia Note - EVALUATION WITHIN 48HRS OF ANESTHETIC Vital Signs in Normal Range: Yes Patient Participated in Evaluation: Yes Respiratory Function Stable: Yes Airway Patent: Yes Cardiovascular Function Stable: Yes Hydration Status Stable: Yes Pain Control Satisfactory: Yes Nausea and Vomiting Control Satisfactory: Yes Mental Status Recovered: Yes
[2016-10-21] MEDS: HYDROmorphone 0.5 MG/0.5 ML Syringe IVPUSH PRN ×4 (12:07→21:41)
[2016-10-21] MEDS: metroNIDAZOLE/Normal Saline 500 MG in Premix Bag 1 BAG IV SCH ×2 (12:07→18:24)
[2016-10-21] MEDS: cefOXitin 1 GM in Premix Bag 1 BAG IV SCH ×2 (15:13→21:41)
--- NOTE | 2016-10-21 16:42 | OR ---
DATE OF OPERATION: 10/21/2016 SURGEON: Manoj Pérez MD PREOPERATIVE DIAGNOSIS: Acute appendicitis. POSTOPERATIVE DIAGNOSIS: Acute appendicitis. OPERATION PERFORMED: Laparoscopic appendectomy done under general anesthetic. ESTIMATED BLOOD LOSS: 10 mL. FINDINGS: The appendix was swollen and one area of necrosis next noted. necrotic appendix. There is fluid in the pelvis and some reaction around the peritoneum. ANESTHESIA: Procedure was done under general anesthetic. DESCRIPTION OF PROCEDURE: The patient was taken to the operating room, placed in a supine position, connected to monitoring equipment, given a general anesthetic and intubated. Antibiotics had been given in the emergency room. SCDs were placed. The abdomen was then prepped with DuraPrep, draped off in a sterile fashion. Incision was made just below the umbilicus, carried down by sharp dissection to the fascia, which was incised, and the abdominal cavity was entered. Davis trocar placed, secured with stay sutures. Pneumoperitoneum established. A 5 mm 30-degree camera was inserted demonstrating acute appendicitis in the right lower quadrant. The patient placed in Trendelenburg with leftward tilt and the appendix was mobilized and a window placed and the appendix identified. A 5-mm trocar was placed in right upper quadrant and one in the right lower quadrant and the appendix was mobilized, incised in its peritoneal attachments and placed in a window at the base of the cecum. The Ethicon Endo-ligator was inserted through this window and the appendix was from its attachments to the cecum. Another firing of Endo-ligator the mesoappendix from the appendix. Some bleeding was noted, this stopped spontaneously. Appendix was placed in an Endobag and removed off the abdominal cavity. A pneumoperitoneum and Davis port was reinserted and the area was irrigated with suction exhauster showing excellent hemostasis. The pelvis was sucked out. The fluid was removed. This completed the intraabdominal portion of the procedure. Pneumoperitoneum and ports were removed and the fascia in the subumbilical port was closed in a transverse fashion with running 0 Vicryl suture. The skin was closed with a running subdermal 4-0 Dexon suture and the subumbilical port with interrupted 4-0 Dexon suture and the right upper quadrant and right lower quadrant ports, and 0.5% Marcaine infiltrated in the incision. The appendix was then inspected and not judged to have an area of necrosis making a high risk for intraabdominal infection and a candidate for antibiotics in-house. MMODAL /[id number]
[2016-10-21] MEDS: traMADol 50 MG Tab PO PRN (18:24)
[2016-10-21] MEDS ORDERED: Aluminum Hydroxide/Magnesium Hydroxide/Simethicone Susp 30 ML Cup PO PRN (18:32)
[2016-10-22] MEDS: cefOXitin 1 GM in Premix Bag 1 BAG IV SCH ×2 (02:47→08:56)
[2016-10-22] MEDS: metroNIDAZOLE/Normal Saline 500 MG in Premix Bag 1 BAG IV SCH ×2 (03:26→12:28)
[2016-10-22] MEDS: HYDROmorphone 0.5 MG/0.5 ML Syringe IVPUSH PRN ×2 (07:19→12:39)
[2016-10-22] MEDS: Formoterol/Mometasone 200-5 MCG 8.8 GM Inhaler IH SCH ×2 (08:06→08:42)
[2016-10-22] MEDS: traMADol 50 MG Tab PO PRN (08:53)
[2016-10-22 12:32] VITALS: BP 125/61
--- NOTE | 2016-10-22 13:11 | PCM.SURGPN ---
- General Info Date of Service: 10/22/16 POD#: 1 - Patient Data Vitals - Most Recent: Last Vital Signs Temp 98.1 F 10/22/16 12:26 Pulse 64 10/22/16 12:26 Resp 18 10/22/16 12:26 BP 125/61 10/22/16 12:26 Pulse Ox 97 10/22/16 12:26 Weight - Most Recent: 77.973 kg I&O - Last 24 Hours: Intake & Output 10/21/16 10/22/16 10/22/16 23:59 07:59 15:59 Intake Total 1790 800 650 Output Total 400 Balance 1390 800 650 Med Orders - Current: Current Medications Al Hydroxide/Mg Hydroxide (Mag-Al Plus) 30 ml PO Q4H PRN PRN Reason: Heartburn Last Admin: 10/21/16 18:48 Dose: 30 ml Albuterol (Proventil Neb Soln) 2.5 mg NEB ONETIME PRN PRN Reason: asthma Diphenhydramine HCl (Benadryl) 25 mg IVPUSH Q6H PRN PRN Reason: pruritis Hydromorphone HCl (Dilaudid) 0.5 mg IVPUSH Q1H PRN PRN Reason: Pain Last Admin: 10/22/16 12:39 Dose: 0.5 mg Cefoxitin Sodium 1 gm/ Premix 50 mls @ 100 mls/hr IV Q6H [facility] Last Admin: 10/22/16 08:56 Dose: 100 mls/hr Metronidazole 500 mg/ Premix 100 mls @ 100 mls/hr IV Q8H [facility] Last Admin: 10/22/16 12:28 Dose: 100 mls/hr Metoclopramide HCl (Reglan) 10 mg IVPUSH Q6H PRN PRN Reason: Nausea Mometasone Furoate/Formoterol Fumar (Dulera 200-5 Mcg) 2 puff IH BID [facility] Last Admin: 10/22/16 08:42 Dose: 2 puff Tramadol HCl (Ultram) 50 mg PO Q6H PRN PRN Reason: Pain Last Admin: 10/22/16 08:53 Dose: 50 mg Discontinued Medications Albuterol (Proventil Hfa) Confirm Administered Dose 6.7 gm INH .STK-MED ONE Stop: 10/21/16 09:59 Bupivacaine HCl (Marcaine 0.5%) Confirm Administered Dose 30 ml .ROUTE .STK-MED ONE Stop: 10/21/16 08:48 Last Admin: 10/21/16 09:47 Dose: 15 ml Dexamethasone (Dexamethasone) Confirm Administered Dose 20 mg .ROUTE .STK-MED ONE Stop: 10/21/16 09:15 Diatrizoate Meglum/Diatrizoate Sod (Gastrografin 37%) 90 ml PO ONETIME ONE Stop: 10/21/16 07:10 Last Admin: 10/21/16 07:18 Dose: 90 ml Fentanyl (Sublimaze) Confirm Administered Dose 250 mcg .ROUTE .STK-MED ONE Stop: 10/21/16 09:16 Fentanyl (Sublimaze) 50 mcg IVPUSH Q5M PRN PRN Reason: Pain Stop: 10/21/16 10:21 Glycopyrrolate (Robinul) Confirm Administered Dose 0.2 mg .ROUTE .STK-MED ONE Stop: 10/21/16 10:16 Glycopyrrolate (Robinul) Confirm Administered Dose 0.2 mg .ROUTE .STK-MED ONE Stop: 10/21/16 10:16 Glycopyrrolate (Robinul) Confirm Administered Dose 0.2 mg .ROUTE .STK-MED ONE Stop: 10/21/16 10:16 Hydromorphone HCl (Dilaudid) 1 mg IVPUSH ONETIME ONE Stop: 10/21/16 04:57 Last Admin: 10/21/16 05:22 Dose: 1 mg Hydromorphone HCl (Dilaudid) 1 mg IVPUSH ONETIME ONE Stop: 10/21/16 07:27 Last Admin: 10/21/16 07:32 Dose: 1 mg Hydromorphone HCl (Dilaudid) 0.5 mg IVPUSH Q15M PRN PRN Reason: severe pain Stop: 10/21/16 10:21 Hydromorphone HCl (Dilaudid) Confirm Administered Dose 1 mg .ROUTE .STK-MED ONE Stop: 10/21/16 10:36 Dextrose/Sodium Chloride (Dextrose 5%-Normal Saline) 1,000 mls @ 999 mls/hr IV ASDIRECTED [facility] Last Admin: 10/21/16 05:31 Dose: 999 mls/hr Potassium Chloride/Dextrose/Sod Cl (D5 Ns With 20 Meq Kcl) Confirm Administered Dose 1,000 mls @ as directed [facility] Stop: 10/21/16 06:39 Last Admin: 10/21/16 06:39 Dose: 1,000 ml Potassium Chloride/Dextrose/Sod Cl (D5 Ns With 20 Meq Kcl) 1,000 mls @ 150 mls/ hr IV ASDIRECTED [facility] Last Admin: 10/21/16 06:45 Dose: 150 mls/hr Cefoxitin Sodium 2 gm/ Premix 50 mls @ 100 mls/hr IV ONETIME ONE Stop: 10/21/16 08:03 Last Admin: 10/21/16 08:53 Dose: 100 mls/hr Lidocaine HCl (Xylocaine-Mpf 1%) Confirm Administered Dose 4 mls @ as directed .[facility] ONE Stop: 10/21/16 09:15 Lactated Ringer's (Ringers, Lactated) Confirm Administered Dose 1,000 mls @ as directed .[facility] ONE Stop: 10/21/16 09:15 Phenylephrine HCl 1 mg/ Sodium (Chloride) 10.1 mls @ 1 mls/sec IV TITRATE [facility] PRN Reason: Protocol Lactated Ringer's (Ringers, Lactated) 1,000 mls @ 75 mls/hr IV ASDIRECTED [facility] Metoclopramide HCl (Reglan) 7.5 mg IVPUSH ONETIME ONE Stop: 10/21/16 04:57 Last Admin: 10/21/16 05:22 Dose: 7.5 mg Midazolam HCl (Versed 1 Mg/Ml) Confirm Administered Dose 2 mg .[facility] ONE Stop: 10/21/16 09:16 Neostigmine Methylsulfate (Neostigmine Methylsulfate) Confirm Administered Dose 10 mg .[facility] ONE Stop: 10/21/16 10:16 Ondansetron HCl (Zofran) 4 mg IVPUSH ONETIME ONE Stop: 10/21/16 07:27 Last Admin: 10/21/16 07:35 Dose: 4 mg Ondansetron HCl (Zofran) Confirm Administered Dose 4 mg .[facility] ONE Stop: 10/21/16 09:15 Ondansetron HCl (Zofran) 4 mg IVPUSH ONETIME PRN PRN Reason: Nausea/Vomiting Ondansetron HCl (Zofran) 4 mg IVPUSH Q8H PRN PRN Reason: Nausea Phenylephrine HCl (Scot-Synephrine) Confirm Administered Dose 10 mg .ROUTE .STK- MED ONE Stop: 10/21/16 10:07 Propofol (Diprivan 20 Ml) Confirm Administered Dose 200 mg .ROUTE .STK-MED ONE Stop: 10/21/16 09:15 Rocuronium [place] (Zemuron) Confirm Administered Dose 50 mg .ROUTE .STK-MED ONE Stop: 10/21/16 09:15 Succinylcholine Chloride (Quelicin) Confirm Administered Dose 200 mg .ROUTE .STK -MED ONE Stop: 10/21/16 09:15 - Problem List Review Problem List Initiated/Reviewed/Updated: Yes - My Orders Last 24 Hours: Active Orders 24 hr Category Date Time Status Antiembolic Devices [RC] BID Care 10/21/16 17:48 Active Regular Diet [DIET] Diet 10/22/16 Lunch Active Alum Hydrox/Mag Hydrox/Simeth [Mag-Al Plus] Med 10/21/16 18:32 Active 30 ml PO Q4H PRN traMADol [Ultram] Med 10/21/16 17:41 Active 50 mg PO Q6H PRN SCD [Sequential Compression Device] [OM.PC] Routine Oth 10/21/16 17:48 Ordered Resuscitation Status Routine Resus Stat 10/21/16 14:11 Ordered Medication Orders Al Hydroxide/Mg Hydroxide (Mag-Al Plus) 30 ml PO Q4H PRN PRN Reason: Heartburn Last Admin: 10/21/16 18:48 Dose: 30 ml Albuterol (Proventil Neb Soln) 2.5 mg NEB ONETIME PRN PRN Reason: asthma Diphenhydramine HCl (Benadryl) 25 mg IVPUSH Q6H PRN PRN Reason: pruritis Hydromorphone HCl (Dilaudid) 0.5 mg IVPUSH Q1H PRN PRN Reason: Pain Last Admin: 10/22/16 12:39 Dose: 0.5 mg Admin: 10/22/16 07:19 Dose: 0.5 mg Admin: 10/21/16 21:41 Dose: 0.5 mg Admin: 10/21/16 19:49 Dose: 0.5 mg Admin: 10/21/16 16:19 Dose: 0.5 mg Admin: 10/21/16 12:07 Dose: 0.5 mg Cefoxitin Sodium 1 gm/ Premix 50 mls @ 100 mls/hr IV Q6H [facility] Last Admin: 10/22/16 08:56 Dose: 100 mls/hr Infusion: 10/22/16 03:17 Dose: 100 mls/hr Admin: 10/22/16 02:47 Dose: 100 mls/hr Infusion: 10/21/16 22:11 Dose: 100 mls/hr Admin: 10/21/16 21:41 Dose: 100 mls/hr Infusion: 10/21/16 15:43 Dose: 100 mls/hr Admin: 10/21/16 15:13 Dose: 100 mls/hr Metronidazole 500 mg/ Premix 100 mls @ 100 mls/hr IV Q8H [facility] Last Admin: 10/22/16 12:28 Dose: 100 mls/hr Infusion: 10/22/16 04:26 Dose: 100 mls/hr Admin: 10/22/16 03:26 Dose: 100 mls/hr Infusion: 10/21/16 19:24 Dose: 100 mls/hr Admin: 10/21/16 18:24 Dose: 100 mls/hr Infusion: 10/21/16 13:07 Dose: 100 mls/hr Admin: 10/21/16 12:07 Dose: 100 mls/hr Metoclopramide HCl (Reglan) 10 mg IVPUSH Q6H PRN PRN Reason: Nausea Mometasone Furoate/Formoterol Fumar (Dulera 200-5 Mcg) 2 puff IH BID [facility] Last Admin: 10/22/16 08:42 Dose: 2 puff Admin: 10/22/16 08:06 Dose: Tramadol HCl (Ultram) 50 mg PO Q6H PRN PRN Reason: Pain Last Admin: 10/22/16 08:53 Dose: 50 mg Admin: 10/21/16 18:24 Dose: 50 mg - Plan Plan (Free Text/Narrative):: discharge dictated JMLeigha
--- NOTE | 2016-10-23 07:24 | CR ---
Abdomen: Supine view of the abdomen was obtained. Comparison: No previous study. Bowel gas pattern appears normal. Bony structures appear normal. No abnormal calcifications or soft tissue abnormality is appreciated. Impression: 1. No abnormality is seen on supine abdominal x-ray. Diagnostic code #1
--- NOTE | 2016-10-23 08:27 | CT ---
CT abdomen and pelvis Technique: Multiple axial sections were obtained from above the dome of the diaphragm inferiorly through the pubic symphysis. No IV contrast was given. Oral contrast was utilized. Findings: Appendicolith is identified at the base of the appendix measuring about 7 mm in size. Additional smaller appendicolith noted within the more distal appendix. Appendix is dilated with slight inflammatory change compatible with appendicitis. There is a moderate amount of free fluid within the pelvis which can represent reactive fluid or pus from the appendicitis. Visualized lung bases show nothing acute. Noncontrast appearance of the liver and spleen appears within normal limits. Adrenal glands show no nodule. Pancreas is within normal limits. Kidneys show no abnormal calcifications or soft tissue abnormality. Aorta shows no aneurysmal dilatation. No retroperitoneal adenopathy or mesenteric abnormalities are seen. No pelvic mass or adenopathy is seen. Bone window settings were reviewed which appear within normal limits for the patient's age. Impression: 1. Enlarged appendix with appendicoliths. Findings compatible with appendicitis. 2. Fluid within the pelvis either reactive or due to pus. 3. No additional abnormality identified on noncontrast CT study of the abdomen and pelvis. Diagnostic code #5 Agree with preliminary report issued by [employer] ([employer] preliminary report dictated on 10/21/16, 8:27 AM Central Time)
--- NOTE | 2016-10-23 09:31 | DISCH ---
sADMISSION DATE: 10/21/2016 DISCHARGE DATE: 10/22/2016 HISTORY: A 36-year-old female who came into the emergency room with right lower quadrant abdominal pain and CT scan that was confirming appendicitis with 2 fecaliths. This was on Sunday. The patient, at that time, had been seen in the walk-in clinic, where a CT scan was performed for this pain, and they felt it was secondary to Crohn disease. She was given an appointment at that time and antibiotics, appointment for GI in [place]. The patient's comorbidities were that of asthma, she was on albuterol and had amoxicillin and hydrocodone allergies. PHYSICAL EXAMINATION: HEART AND LUNGS: Normal, but there was tenderness in the right lower quadrant with a positive McBurney's sign. HOSPITAL COURSE: The patient was seen in the emergency room and brought to the operating room, where a laparoscopic appendectomy was performed. There was a real concern for necrosis to the portion of the appendix, and she was placed overnight with IV antibiotics of cefoxitin and metronidazole. The patient improved, was eating. Abdomen was softer and her well being was excellent. She had reached maximum hospital benefit and was discharged with oral antibiotics of metronidazole and Cipro, pain medication of Flagyl. We will resume her albuterol, multivitamins, and Dulera 200/5. She was started on a regular diet. No work, pushing, shoving, or pulling and instructed on wound care. Her condition on discharge was improved and asked not to work. FINAL DIAGNOSES: 1. Acute appendicitis with area of necrosis, status post appendectomy. 2. Her history of allergies. The patient will be followed up in a week. DIET: See above. ACTIVITY: See above. FOLLOW-UP: See above. CONDITION ON DISCHARGE: Improved. MMGRACIE /[id number]
== END 2016-10-22 14:30 | disposition home or self-care (01) ==
LOC: JD.ED 03:54 → JD.SDS 08:26 → JD.MS 10:36
PROVIDERS: ADMIT Surgery; ATTEND Surgery
DX: K35.3 Acute appendicitis with localized peritonitis (principal); J45.909 Unspecified asthma, uncomplicated; F17.210 Nicotine dependence, cigarettes, uncomplicated; Z88.0 Allergy status to penicillin; Z88.5 Allergy status to narcotic agent; Z91.013 Allergy to seafood; Z79.51 Long term (current) use of inhaled steroids; Z79.899 Other long term (current) drug therapy; Z90.49 Acquired absence of other specified parts of digestive tract; Z90.710 Acquired absence of both cervix and uterus
CPT/HCPCS: 36415; 44970; 74000; 74176; 80053; 81001; 85025; 86140; 94664; 96361; 96365; 96375; 96376; 99285; A9270; G0378; J0330; J0694; J1100; J1170; J2250; J2370; J2405; J2710; J2765; J3010; J3480; J3490; J7042; J7120; Q9963; 00840; J2704

== ENCOUNTER 2021-06-22 10:42 | Day surgery (SDC) | payer OTHER ==
[~2021-06-22 10:42] MED LIST: Acetaminophen 325 MG Tab PO SCH; Gabapentin 300 MG Cap PO SCH; Lactated Ringers 1,000 ML IV SCH; Lidocaine 1%/Sod Bicarbonate in NS 8.4% 1 ML Syringe IDERM PRN; Sodium Chloride 0.9% 10 ML Syringe FLUSH PRN; Sodium Chloride 0.9% 10 ML Syringe FLUSH SCH
[2021-06-22] MEDS ORDERED: Albuterol 0.083% 2.5 MG/3 ML Neb Soln NEB SCH (11:16)
[2021-06-22] MEDS ORDERED: Lidocaine 1% with EPINEPHrine 1:100,000 10 ML MDV ONE ×2 (11:34→14:21)
[2021-06-22] MEDS ORDERED: Bupivacaine 0.5%/EPINEPHrine 1:200,000 50 ML MDV ONE ×2 (11:35→14:21)
[2021-06-22] MEDS ORDERED: Midazolam 1 MG/ML 2 ML SDV ONE (12:56)
[2021-06-22] MEDS ORDERED: Propofol 200 MG/20 ML SDV ONE (12:56)
[2021-06-22] MEDS ORDERED: fentaNYL 250 MCG/5 ML SDV ONE (12:56)
[2021-06-22] MEDS ORDERED: Lidocaine 1% 4 ML ONE (12:57)
[2021-06-22] MEDS ORDERED: Rocuronium 50 MG/5 ML Vial ONE (13:00)
[2021-06-22] MEDS ORDERED: Dexamethasone 4 MG/ML 5 ML MDV ONE (13:01)
[2021-06-22] MEDS ORDERED: Ondansetron 4 MG/2 ML SDV ONE (13:01)
[2021-06-22] MEDS ORDERED: ceFAZolin 1 GM Vial ONE (14:08)
[2021-06-22] MEDS ORDERED: Clindamycin Phosphate in D5W 900 MG in Premix Bag 1 BAG IV ONE ×2 (14:15)
[2021-06-22] MEDS ORDERED: Lactated Ringers 1,000 ML ONE (14:31)
[2021-06-22] MEDS ORDERED: Ketorolac 30 MG/ML SDV ONE (14:31)
[2021-06-22] MEDS ORDERED: Lidocaine 1%/Sod Bicarbonate in NS 8.4% 1 ML Syringe IDERM PRN (15:23)
[2021-06-22] MEDS ORDERED: Sodium Chloride 0.9% 10 ML Syringe FLUSH PRN (15:23)
[2021-06-22] MEDS ORDERED: HYDROmorphone 0.5 MG/0.5 ML Syringe IVPUSH PRN (15:26)
[2021-06-22] MEDS ORDERED: fentaNYL 100 MCG/2 ML SDV IVPUSH PRN (15:26)
[2021-06-22] MEDS ORDERED: Ondansetron 4 MG/2 ML SDV IVPUSH PRN (15:26)
[2021-06-22] MEDS ORDERED: Lactated Ringers 1,000 ML IV SCH (15:30)
[2021-06-22] MEDS ORDERED: traMADol 50 MG Tab PO ONE (16:18)
[2021-06-22 19:23] VITALS: BP 124/72; PULSE 97
[2021-06-22] MEDS ORDERED: Sodium Chloride 0.9% 10 ML Syringe FLUSH SCH (21:00)
== END 2021-06-22 17:05 | disposition home or self-care (01) ==
LOC: JD.SDS 10:42
PROVIDERS: ATTEND Surgery
DX: K43.2 Incisional hernia without obstruction or gangrene (principal); K42.9 Umbilical hernia without obstruction or gangrene; J45.909 Unspecified asthma, uncomplicated; G47.33 Obstructive sleep apnea (adult) (pediatric); F17.210 Nicotine dependence, cigarettes, uncomplicated; Z88.5 Allergy status to narcotic agent; Z88.0 Allergy status to penicillin; Z91.013 Allergy to seafood; Z88.6 Allergy status to analgesic agent; Z90.49 Acquired absence of other specified parts of digestive tract; Z90.711 Acquired absence of uterus with remaining cervical stump; Z79.51 Long term (current) use of inhaled steroids; Z79.899 Other long term (current) drug therapy
CPT/HCPCS: 49654; A9270; J0690; J1100; J1885; J2250; J2405; J2704; J2710; J3010; J3490; J7120; C1781